=== PATIENT | male | born 1940 | race African-American/Black ===

== ENCOUNTER 2016-05-15 10:55 | Outpatient (CLI) | payer MEDICARE ==
[2016-05-15 11:29] LABS: Hemoglobin A1c 5.6 % (4.0-6.0)
[2016-05-15 11:41] LABS: INR-International Normal Ratio 2.2; Prothrombin Time 24.1 SEC (12.0-14.7)
[2016-05-15 11:48] LABS: Cardiac Risk 2.7 (Less than 4.5)
== END 2016-05-15 10:56 | disposition home or self-care (01) ==
LOC: MADLAB 10:55
DX: I48.91 Unspecified atrial fibrillation (principal); I50.9 Heart failure, unspecified; G40.119 Localization-related (focal) (partial) symptomatic epilepsy and epileptic syndromes with simple partial seizures, intractable, without status epilepticus
CPT/HCPCS: 36415; 80061; 80183; 82550; 83036; 85610; G0103

== ENCOUNTER 2016-06-19 09:52 | Outpatient (CLI) | payer MEDICARE ==
[2016-06-19 10:23] LABS: INR-International Normal Ratio 2.3; Prothrombin Time 25.6 SEC (12.0-14.7)
[2016-06-19 10:37] LABS: Hemoglobin A1c 5.6 % (4.0-6.0)
[2016-06-19 10:39] LABS: Cardiac Risk 2.5 (Less than 4.5)
== END 2016-06-19 09:53 | disposition home or self-care (01) ==
LOC: MADLAB 09:52
DX: I48.91 Unspecified atrial fibrillation (principal); I50.9 Heart failure, unspecified; G40.119 Localization-related (focal) (partial) symptomatic epilepsy and epileptic syndromes with simple partial seizures, intractable, without status epilepticus
CPT/HCPCS: 36415; 80061; 80183; 82550; 83036; 85610; G0103

== ENCOUNTER 2016-07-03 08:39 | Outpatient (CLI) | payer MEDICARE ==
[2016-07-03 09:14] LABS: INR-International Normal Ratio 2.2; Prothrombin Time 24.3 SEC (12.0-14.7)
[2016-07-03 09:24] LABS: Cardiac Risk 2.7 (Less than 4.5)
[2016-07-03 09:34] LABS: Hemoglobin A1c 5.7 % (4.0-6.0)
== END 2016-07-03 08:40 | disposition home or self-care (01) ==
LOC: MADLAB 08:39
DX: I50.9 Heart failure, unspecified (principal); G40.119 Localization-related (focal) (partial) symptomatic epilepsy and epileptic syndromes with simple partial seizures, intractable, without status epilepticus
CPT/HCPCS: 36415; 80061; 80183; 82550; 83036; 85610; G0103

== ENCOUNTER 2016-07-17 08:40 | Outpatient (CLI) | payer MEDICARE ==
[2016-07-17 09:17] LABS: Hemoglobin A1c 5.7 % (4.0-6.0)
[2016-07-17 09:19] LABS: INR-International Normal Ratio 2.4; Prothrombin Time 26.4 SEC (12.0-14.7)
[2016-07-17 09:27] LABS: Cardiac Risk 2.8 (Less than 4.5)
== END 2016-07-17 08:41 | disposition home or self-care (01) ==
LOC: MADLAB 08:40
DX: I48.91 Unspecified atrial fibrillation (principal); G40.119 Localization-related (focal) (partial) symptomatic epilepsy and epileptic syndromes with simple partial seizures, intractable, without status epilepticus
CPT/HCPCS: 36415; 80061; 80183; 82550; 83036; 85610; G0103

== ENCOUNTER 2016-07-31 08:57 | Outpatient (CLI) | payer MEDICARE ==
[2016-07-31 09:28] LABS: INR-International Normal Ratio 2.3; Prothrombin Time 25.4 SEC (12.0-14.7)
[2016-07-31 09:32] LABS: Hemoglobin A1c 5.7 % (4.0-6.0)
[2016-07-31 09:35] LABS: Cardiac Risk 3.2 (Less than 4.5)
== END 2016-07-31 08:58 | disposition home or self-care (01) ==
LOC: MADLAB 08:57
DX: I48.91 Unspecified atrial fibrillation (principal); I50.9 Heart failure, unspecified; G40.119 Localization-related (focal) (partial) symptomatic epilepsy and epileptic syndromes with simple partial seizures, intractable, without status epilepticus
CPT/HCPCS: 36415; 80061; 80183; 82550; 83036; 85610; G0103

== ENCOUNTER 2016-10-30 10:28 | Outpatient (CLI) | payer MEDICARE ==
[2016-10-30 11:14] LABS: INR-International Normal Ratio 2.4; Prothrombin Time 25.7 SEC (12.0-14.7)
[2016-10-30 11:18] LABS: Hemoglobin A1c 5.7 % (4.0-6.0)
[2016-10-30 11:22] LABS: Cardiac Risk 2.7 (Less than 4.5)
== END 2016-10-30 10:29 | disposition home or self-care (01) ==
LOC: MADLAB 10:28
DX: I48.91 Unspecified atrial fibrillation (principal); I50.9 Heart failure, unspecified
CPT/HCPCS: 36415; 80061; 80183; 82550; 83036; 85610; G0103

== ENCOUNTER 2016-12-18 07:50 | Outpatient (CLI) | payer MEDICARE ==
[2016-12-18 08:33] LABS: INR-International Normal Ratio 2.3; Prothrombin Time 26.2 SEC (12.0-14.7)
[2016-12-18 08:45] LABS: Hemoglobin A1c 5.6 % (4.0-6.0)
[2016-12-18 08:47] LABS: Cardiac Risk 2.8 (Less than 4.5)
== END 2016-12-18 07:51 | disposition home or self-care (01) ==
LOC: MADLAB 07:50
DX: I48.91 Unspecified atrial fibrillation (principal); I50.9 Heart failure, unspecified; G40.119 Localization-related (focal) (partial) symptomatic epilepsy and epileptic syndromes with simple partial seizures, intractable, without status epilepticus
CPT/HCPCS: 36415; 80061; 80183; 82550; 83036; 85610; G0103

== ENCOUNTER 2016-12-25 08:30 | Outpatient (CLI) | payer MEDICARE ==
[2016-12-25 09:18] LABS: Hemoglobin A1c 5.5 % (4.0-6.0)
[2016-12-25 09:28] LABS: INR-International Normal Ratio 1.8; Prothrombin Time 21.8 SEC (12.0-14.7)
[2016-12-25 09:40] LABS: Cardiac Risk 2.8 (Less than 4.5)
== END 2016-12-25 08:31 | disposition home or self-care (01) ==
LOC: MADLAB 08:30
DX: I48.91 Unspecified atrial fibrillation (principal); G40.119 Localization-related (focal) (partial) symptomatic epilepsy and epileptic syndromes with simple partial seizures, intractable, without status epilepticus; I50.9 Heart failure, unspecified
CPT/HCPCS: 36415; 80061; 80183; 82550; 83036; 85610; G0103

== ENCOUNTER 2017-02-05 10:03 | Outpatient (CLI) | payer MEDICARE ==
[2017-02-05 10:42] LABS: Hemoglobin A1c 5.6 % (4.0-6.0)
[2017-02-05 10:52] LABS: INR-International Normal Ratio 2.2; Prothrombin Time 24.8 SEC (12.0-14.7)
[2017-02-05 10:59] LABS: Cardiac Risk 2.8 (Less than 4.5)
== END 2017-02-05 10:04 | disposition home or self-care (01) ==
LOC: MADLAB 10:03
DX: G40.109 Localization-related (focal) (partial) symptomatic epilepsy and epileptic syndromes with simple partial seizures, not intractable, without status epilepticus (principal)
CPT/HCPCS: 36415; 80061; 80177; 80183; 82550; 83036; 85610; G0103

== ENCOUNTER 2017-06-25 08:54 | Outpatient (CLI) | payer MEDICARE ==
[2017-06-25 09:36] LABS: INR-International Normal Ratio 2.4; Prothrombin Time 27.4 SEC (12.0-14.7)
[2017-06-25 09:48] LABS: Cardiac Risk 2.9 (Less than 4.5)
[2017-06-25 17:03] LABS: Hemoglobin A1c 5.7 % (4.0-6.0)
== END 2017-06-25 08:55 | disposition home or self-care (01) ==
LOC: MADLAB 08:54
PROVIDERS: ATTEND Psychiatry & Neurology Neurology
DX: I48.91 Unspecified atrial fibrillation (principal); I50.9 Heart failure, unspecified; G40.109 Localization-related (focal) (partial) symptomatic epilepsy and epileptic syndromes with simple partial seizures, not intractable, without status epilepticus
CPT/HCPCS: 36415; 80061; 80177; 80183; 82550; 83036; 85610; G0103

== ENCOUNTER 2017-09-26 09:52 | Outpatient (CLI) | payer MEDICARE ==
[2017-09-26 10:28] LABS: INR-International Normal Ratio 2.1; Prothrombin Time 24.1 SEC (12.0-14.7)
[2017-09-26 10:39] LABS: Acanthocytes SLIGHT = 1-5 cells (100X) (None Seen); Anisocytosis SLIGHT = 6-15 cells (100X) (0-5/hpf); Band 3 % (5-11); Elliptocytes SLIGHT = 2-5 cells (100X) (0-1/hpf); Hemoglobin 12.4 g/dL (14.0-18.0); Lymphocytes 36 % (21-51); MDiff Complete? YES; Mean Corpuscular HGB CONC 31.1 g/dL (32.0-36.0); Mean Corpuscular Hemoglobin 23.8 pg (27.0-31.0); Mean Corpuscular Volume 76.8 fl (80.0-94.0); Mean Platelet Volume 8.6 fL (7.4-10.4); Metamyelocyte 3 % (0-0); Microcytosis SLIGHT = 6-15 cells (100X) (0-5/hpf); Monocytes 2 % (0-10); Neutrophil 56 % (42-75); PLT Morphology Comment PLTS SLIGHTLY DECREASED ON SLIDE; Platelet Count 103 thou/uL (130-400); Poikilocytosis SLIGHT = 6-15 cells (100X) (0-5/hpf); RBC Distribution Width 14.2 % (11.5-14.5); Red Blood Cell (RBC) Count 5.21 mill/uL (4.70-6.10); Schistocytes SLIGHT = 2-5 cells (100X) (0-1/hpf); Target Cells SLIGHT = 2-5 cells (100X) (0-1/hpf)
[2017-09-26 10:43] LABS: White Blood Cell (WBC) Count 2.6 thou/uL (4.8-10.8)
[2017-09-26 10:49] LABS: ALT (SGPT) 10 U/L (8-55); AST (SGOT) 17 U/L (5-34); Albumin 3.7 g/dL (3.4-4.8); Alkaline Phosphatase 77 U/L (40-150); Anion Gap 14 mmol/L (10-20); BUN (Urea Nitrogen) 16 mg/dL (8.4-25.7); Bilirubin, Direct 0.5 mg/dL (0.1-0.3); CK (CPK) 147 U/L (30-200); Calc. Creatinine Clearance 0 mL/min (70-130); Calcium 8.9 mg/dL (7.8-10.44); Carbon Dioxide 24 mmol/L (23-31); Cardiac Risk 2.8 (Less than 4.5); Chloride 106 mmol/L (98-107); Cholesterol 140 mg/dl (< 200 Desired); Estimated GFR-MDRD 70; Globulin 3.1 g/dL (2.4-3.5); Glucose 78 mg/dL (83-110); HDL Cholesterol 50 mg/dL (>60 Neg Risk); LDL Cholesterol, Calculated 81 mg/dL; Potassium 3.7 mmol/L (3.5-5.1); Protein, Total 6.8 g/dL (5.8-8.1); Sodium 140 mmol/L (136-145); Triglycerides 47 mg/dL (Less than 150)
[2017-09-26 17:34] LABS: Hemoglobin A1c 5.7 % (4.0-6.0)
[2017-09-26 17:46] LABS: Gamma GT (GGT) 91 U/L (12-64)
== END 2017-09-26 09:53 | disposition home or self-care (01) ==
LOC: MADLAB 09:52
PROVIDERS: ATTEND Psychiatry & Neurology Neurology
DX: Z00.00 Encounter for general adult medical examination without abnormal findings (principal); N40.0 Benign prostatic hyperplasia without lower urinary tract symptoms; I50.9 Heart failure, unspecified; E78.5 Hyperlipidemia, unspecified; I05.9 Rheumatic mitral valve disease, unspecified; G40.109 Localization-related (focal) (partial) symptomatic epilepsy and epileptic syndromes with simple partial seizures, not intractable, without status epilepticus; I48.91 Unspecified atrial fibrillation; Z95.810 Presence of automatic (implantable) cardiac defibrillator
CPT/HCPCS: 36415; 80053; 80061; 80177; 80183; 82248; 82550; 82977; 83036; 84100; 84443; 84550; 85025; 85610; G0103

== ENCOUNTER 2017-12-17 11:01 | Outpatient (CLI) | payer MEDICARE ==
[2017-12-17 11:47] LABS: INR-International Normal Ratio 1.8; Prothrombin Time 20.5 SEC (12.0-14.7)
== END 2017-12-17 11:02 | disposition home or self-care (01) ==
LOC: MADLAB 11:01
PROVIDERS: ATTEND Psychiatry & Neurology Neurology
DX: I48.91 Unspecified atrial fibrillation (principal); G40.109 Localization-related (focal) (partial) symptomatic epilepsy and epileptic syndromes with simple partial seizures, not intractable, without status epilepticus
CPT/HCPCS: 36415; 80177; 80183; 85610

== ENCOUNTER 2017-12-17 11:20 | Emergency (ER) | payer MEDICARE ==
--- NOTE | 2017-12-17 13:00 | RAD ---
LUMBAR SPINE RADIOGRAPHIC SERIES: Clinical indication: Fall with pain. FINDINGS: A chronic mild to moderate L1 compression fracture is present as was depicted on a prior CT 04-09-12. There is mild height loss of L4 and mild to moderate height loss at L5, age indeterminate. No signif icant subluxation. Scattered atherosclerotic vascular calcification is seen. IMPRESSION: Age indeterminate L4 and L5 level compression fractures. Recommend CT of lumbar spine, noncontrast, f or further evaluation, in light of the patient's recent injury with pain. POS: AMY
--- NOTE | 2017-12-17 13:16 | CT ---
CT LUMBAR SPINE WITH CORONAL AND SAGITTAL REFORMATIONS: Date: 12/17/17 HISTORY: Fall, injury, low back pain. FINDINGS/IMPRESSION: There is acute compression of L4 vertebral body with a chip fracture involving the superior anterior aspect of the L4 vertebral body. There is minimal retropulsion of the superior aspect of the L4 verte bral body. Compression of L5, L1, and T1 vertebral bodies is seen and appears age-indeterminate. There is a small amount of free fluid in the pelvis. Vascular calcifications are present. POS: AMY
== END 2017-12-17 13:50 | disposition home or self-care (01) ==
LOC: MADERS 11:20
DX: S32.059A Unspecified fracture of fifth lumbar vertebra, initial encounter for closed fracture (principal); S32.049A Unspecified fracture of fourth lumbar vertebra, initial encounter for closed fracture; I10 Essential (primary) hypertension; E78.5 Hyperlipidemia, unspecified; F17.210 Nicotine dependence, cigarettes, uncomplicated; W19.XXXA Unspecified fall, initial encounter
CPT/HCPCS: 36415; 72100; 72131; 80177; 80183; 85610

== ENCOUNTER 2017-12-27 08:55 | Outpatient (CLI) | payer MEDICARE ==
[2017-12-27 10:01] LABS: INR-International Normal Ratio 2.3; Prothrombin Time 25.5 SEC (12.0-14.7)
== END 2017-12-27 08:56 | disposition home or self-care (01) ==
LOC: MADLAB 08:55
PROVIDERS: ATTEND Hospitalist
DX: I48.91 Unspecified atrial fibrillation (principal)
CPT/HCPCS: 36415; 85610

== ENCOUNTER 2018-01-21 09:30 | Outpatient (CLI) | payer MEDICARE ==
[2018-01-22 08:51] LABS: INR-International Normal Ratio 1.9; Prothrombin Time 21.7 SEC (12.0-14.7)
== END 2018-01-21 09:31 | disposition home or self-care (01) ==
LOC: MADLAB 09:30
PROVIDERS: ATTEND Psychiatry & Neurology Neurology
DX: G40.109 Localization-related (focal) (partial) symptomatic epilepsy and epileptic syndromes with simple partial seizures, not intractable, without status epilepticus (principal); I48.91 Unspecified atrial fibrillation
CPT/HCPCS: 80177; 80183; 85610

== ENCOUNTER 2018-04-23 10:12 | Outpatient (CLI) | payer MEDICARE ==
[2018-04-23 10:39] LABS: INR-International Normal Ratio 2.5; Prothrombin Time 26.6 SEC (12.0-14.7)
== END 2018-04-23 10:13 | disposition home or self-care (01) ==
LOC: MADLAB 10:12
PROVIDERS: ATTEND Psychiatry & Neurology Neurology
DX: Z51.81 Encounter for therapeutic drug level monitoring (principal); I48.91 Unspecified atrial fibrillation; G40.109 Localization-related (focal) (partial) symptomatic epilepsy and epileptic syndromes with simple partial seizures, not intractable, without status epilepticus; Z79.01 Long term (current) use of anticoagulants
CPT/HCPCS: 36415; 80177; 85610

== ENCOUNTER 2018-06-25 09:10 | Outpatient (CLI) | payer MEDICARE ==
[2018-06-25 09:56] LABS: INR-International Normal Ratio 2.4
== END 2018-06-25 09:11 | disposition home or self-care (01) ==
LOC: MADLAB 09:10
PROVIDERS: ATTEND Psychiatry & Neurology Neurology
DX: Z51.81 Encounter for therapeutic drug level monitoring (principal); I48.91 Unspecified atrial fibrillation; Z79.899 Other long term (current) drug therapy
CPT/HCPCS: 36415; 80177; 80183; 85610

== ENCOUNTER 2018-12-25 13:25 | Outpatient (CLI) | payer MEDICARE ==
[2018-12-25 13:54] LABS: Hemoglobin 11.3 g/dL (14.0-18.0); Mean Corpuscular HGB CONC 29.9 g/dL (32.0-36.0); Mean Corpuscular Hemoglobin 22.9 pg (27.0-31.0); Mean Corpuscular Volume 76.5 fL (78.0-98.0); Mean Platelet Volume 9.2 fL (7.4-10.4); Platelet Count 101 thou/uL (130-400); RBC Distribution Width 14.9 % (11.5-14.5); Red Blood Cell (RBC) Count 4.92 mill/uL (4.70-6.10); White Blood Cell (WBC) Count 2.7 thou/uL (4.8-10.8)
[2018-12-25 14:01] LABS: INR-International Normal Ratio 1.9; Prothrombin Time 21.6 SEC (12.0-14.7)
[2018-12-25 14:12] LABS: ALT (SGPT) 18 U/L (8-55); AST (SGOT) 22 U/L (5-34); Albumin 3.9 g/dL (3.4-4.8); Alkaline Phosphatase 95 U/L (40-150); Anion Gap 11 mmol/L (10-20); BUN (Urea Nitrogen) 15 mg/dL (8.4-25.7); Bilirubin, Total 0.6 mg/dL (0.2-1.2); CK (CPK) 85 U/L (30-200); Calc. Creatinine Clearance 0 mL/min (70-130); Calcium 8.9 mg/dL (7.8-10.44); Carbon Dioxide 26 mmol/L (23-31); Cardiac Risk 2.8 (Less than 4.5); Chloride 108 mmol/L (98-107); Cholesterol 145 mg/dl (< 200 Desired); Estimated GFR-MDRD 60; Globulin 3.4 g/dL (2.4-3.5); Glucose 84 mg/dL (83-110); HDL Cholesterol 52 mg/dL (>60 Neg Risk); LDL Cholesterol, Calculated 83 mg/dL; Potassium 4.1 mmol/L (3.5-5.1); Protein, Total 7.3 g/dL (5.8-8.1); Sodium 141 mmol/L (136-145); Triglycerides 52 mg/dL (Less than 150)
== END 2018-12-25 13:26 | disposition home or self-care (01) ==
LOC: MADLAB 13:25
PROVIDERS: ATTEND Psychiatry & Neurology Neurology
DX: I48.91 Unspecified atrial fibrillation (principal); I05.9 Rheumatic mitral valve disease, unspecified; I50.9 Heart failure, unspecified; Z95.810 Presence of automatic (implantable) cardiac defibrillator
CPT/HCPCS: 36415; 80053; 80061; 80177; 80183; 82550; 85027; 85610; G0103

== ENCOUNTER 2019-03-02 10:41 | Outpatient (CLI) | payer MEDICARE ==
[2019-03-02 11:26] LABS: Anion Gap 10 mmol/L (10-20); BUN (Urea Nitrogen) 15 mg/dL (8.4-25.7); Calc. Creatinine Clearance 0 mL/min (70-130); Carbon Dioxide 26 mmol/L (23-31); Chloride 107 mmol/L (98-107); Estimated GFR-MDRD 70; Glucose 92 mg/dL (83-110); Potassium 4.3 mmol/L (3.5-5.1); Sodium 139 mmol/L (136-145)
[2019-03-02 18:46] LABS: INR-International Normal Ratio 1.4; Prothrombin Time 16.8 SEC (12.0-14.7)
== END 2019-03-02 10:42 | disposition home or self-care (01) ==
LOC: MADLAB 10:41
PROVIDERS: ATTEND Hospitalist
DX: I50.9 Heart failure, unspecified (principal); I48.91 Unspecified atrial fibrillation; I05.9 Rheumatic mitral valve disease, unspecified; Z95.810 Presence of automatic (implantable) cardiac defibrillator
CPT/HCPCS: 36415; 80048; 85610

== ENCOUNTER 2019-03-04 12:01 | Outpatient (CLI) | payer MEDICARE ==
[2019-03-04 12:44] LABS: INR-International Normal Ratio 1.4
[2019-03-04 12:49] LABS: Anion Gap 12 mmol/L (10-20); BUN (Urea Nitrogen) 15 mg/dL (8.4-25.7); Calc. Creatinine Clearance 0 mL/min (70-130); Calcium 8.8 mg/dL (7.8-10.44); Carbon Dioxide 27 mmol/L (23-31); Chloride 105 mmol/L (98-107); Estimated GFR-MDRD 60; Glucose 86 mg/dL (83-110); Potassium 4.5 mmol/L (3.5-5.1); Sodium 139 mmol/L (136-145)
== END 2019-03-04 12:02 | disposition home or self-care (01) ==
LOC: MADLAB 12:01
PROVIDERS: ATTEND Hospitalist
DX: I50.9 Heart failure, unspecified (principal); I05.9 Rheumatic mitral valve disease, unspecified; I48.91 Unspecified atrial fibrillation; Z95.810 Presence of automatic (implantable) cardiac defibrillator
CPT/HCPCS: 80048; 85610

== ENCOUNTER 2019-03-06 08:49 | Outpatient (CLI) | payer MEDICARE ==
[2019-03-06 09:27] LABS: INR-International Normal Ratio 1.6; Prothrombin Time 19.3 SEC (12.0-14.7)
[2019-03-06 10:11] LABS: Anion Gap 12 mmol/L (10-20); BUN (Urea Nitrogen) 18 mg/dL (8.4-25.7); Calc. Creatinine Clearance 0 mL/min (70-130); Carbon Dioxide 25 mmol/L (23-31); Chloride 107 mmol/L (98-107); Estimated GFR-MDRD 67; Glucose 143 mg/dL (83-110); Potassium 4.2 mmol/L (3.5-5.1); Sodium 140 mmol/L (136-145)
== END 2019-03-06 08:50 | disposition home or self-care (01) ==
LOC: MADLAB 08:49
PROVIDERS: ATTEND Hospitalist
DX: I50.9 Heart failure, unspecified (principal); I48.91 Unspecified atrial fibrillation; Z95.810 Presence of automatic (implantable) cardiac defibrillator
CPT/HCPCS: 36415; 80048; 85610

== ENCOUNTER 2019-03-09 08:35 | Outpatient (CLI) | payer MEDICARE ==
[2019-03-09 08:55] LABS: INR-International Normal Ratio 1.7; Prothrombin Time 20.2 SEC (12.0-14.7)
[2019-03-09 09:02] LABS: Anion Gap 13 mmol/L (10-20); BUN (Urea Nitrogen) 17 mg/dL (8.4-25.7); Calc. Creatinine Clearance 0 mL/min (70-130); Calcium 9.3 mg/dL (7.8-10.44); Carbon Dioxide 26 mmol/L (23-31); Chloride 105 mmol/L (98-107); Estimated GFR-MDRD 63; Glucose 97 mg/dL (83-110); Potassium 4.8 mmol/L (3.5-5.1); Sodium 139 mmol/L (136-145)
== END 2019-03-09 08:36 | disposition home or self-care (01) ==
LOC: MADLAB 08:35
PROVIDERS: ATTEND Hospitalist
DX: I05.9 Rheumatic mitral valve disease, unspecified (principal); I50.9 Heart failure, unspecified; I48.91 Unspecified atrial fibrillation; Z95.810 Presence of automatic (implantable) cardiac defibrillator
CPT/HCPCS: 36415; 80048; 85610

== ENCOUNTER 2019-06-26 14:07 | Outpatient (CLI) | payer MEDICARE ==
[2019-06-26 14:33] LABS: INR-International Normal Ratio 2.9
[2019-06-26 14:44] LABS: ALT (SGPT) 18 U/L (8-55); AST (SGOT) 21 U/L (5-34); Albumin 3.9 g/dL (3.4-4.8); Alkaline Phosphatase 101 U/L (40-110); Anion Gap 13 mmol/L (10-20); BUN (Urea Nitrogen) 12 mg/dL (8.4-25.7); Bilirubin, Total 0.5 mg/dL (0.2-1.2); CK (CPK) 58 U/L (30-200); Calc. Creatinine Clearance 0 mL/min (70-130); Calcium 8.8 mg/dL (7.8-10.44); Carbon Dioxide 26 mmol/L (23-31); Chloride 108 mmol/L (98-107); Estimated GFR-MDRD 66; Globulin 3.7 g/dL (2.4-3.5); Glucose 91 mg/dL (83-110); Potassium 4.8 mmol/L (3.5-5.1); Protein, Total 7.6 g/dL (5.8-8.1); Sodium 142 mmol/L (136-145)
[2019-06-26 15:31] LABS: #Basophils 0.1 thou/uL (0.0-0.2); #Eosinphils 0.1 thou/uL (0.0-0.7); #Lymphocytes 1.1 thou/uL (1.20-3.40); #Monocytes 0.3 thou/uL (0.11-0.59); #Neutrophils 1.7 thou/uL (1.40-6.50); %Basophils 2.1 % (0.0-1.0); %Eosinophils 3.6 % (0.0-10.0); %Lymphocytes 32.7 % (21.0-51.0); %Neutrophils 52.7 % (42.0-75.0); Hemoglobin 11.6 g/dL (14.0-18.0); Hypochromia SLIGHT = 6-15 cells (100X) (0-5/hpf); MDiff Complete? YES; Mean Corpuscular HGB CONC 28.8 g/dL (32.0-36.0); Mean Corpuscular Hemoglobin 23.3 pg (27.0-31.0); Mean Corpuscular Volume 80.7 fL (78.0-98.0); Mean Platelet Volume 10.1 fL (7.4-10.4); Nucleated RBC 0 % (0); Platelet Count 143 thou/uL (130-400); RBC Distribution Width 15.8 % (11.5-14.5); Red Blood Cell (RBC) Count 4.99 mill/uL (4.70-6.10); White Blood Cell (WBC) Count 3.3 thou/uL (4.8-10.8)
== END 2019-06-26 14:08 | disposition home or self-care (01) ==
LOC: MADLAB 14:07
PROVIDERS: ATTEND Psychiatry & Neurology Neurology
DX: I50.9 Heart failure, unspecified (principal); Z95.810 Presence of automatic (implantable) cardiac defibrillator
CPT/HCPCS: 36415; 80053; 82550; 85025; 85610

== ENCOUNTER 2020-03-03 14:33 | Outpatient (CLI) | payer MEDICARE ==
[2020-03-03 15:10] LABS: Prothrombin Time 22.8 sec (12.0-14.7)
[2020-03-03 15:20] LABS: ALT (SGPT) 12 U/L (8-55); AST (SGOT) 16 U/L (5-34); Albumin 3.9 g/dL (3.4-4.8); Alkaline Phosphatase 111 U/L (40-110); Anion Gap 15 mmol/L (10-20); BUN (Urea Nitrogen) 6 mg/dL (8.4-25.7); Bilirubin, Total 0.7 mg/dL (0.2-1.2); CK (CPK) 75 U/L (30-200); Calc. Creatinine Clearance 0 mL/min (70-130); Calcium 8.7 mg/dL (7.8-10.44); Carbon Dioxide 27 mmol/L (23-31); Chloride 93 mmol/L (98-107); Estimated GFR-MDRD 81; Globulin 3.3 g/dL (2.4-3.5); Glucose 99 mg/dL (83-110); Potassium 3.7 mmol/L (3.5-5.1); Protein, Total 7.2 g/dL (5.8-8.1); Sodium 131 mmol/L (136-145)
[2020-03-03 17:24] LABS: Hemoglobin 12.1 g/dL (14.0-18.0); Mean Corpuscular Hemoglobin 23.7 pg (27.0-31.0); Mean Corpuscular Volume 79.2 fL (78.0-98.0); Mean Platelet Volume 8.3 fL (7.4-10.4); Platelet Count 161 thou/uL (130-400); RBC Distribution Width 14.4 % (11.5-14.5); Red Blood Cell (RBC) Count 5.11 mill/uL (4.70-6.10)
[2020-03-03 17:25] LABS: White Blood Cell (WBC) Count 2.9 thou/uL (4.8-10.8)
== END 2020-03-03 14:34 | disposition home or self-care (01) ==
LOC: MADLAB 14:33
PROVIDERS: ATTEND Hospitalist
DX: I50.9 Heart failure, unspecified (principal); Z95.810 Presence of automatic (implantable) cardiac defibrillator
CPT/HCPCS: 36415; 80053; 82550; 85027; 85610

== ENCOUNTER 2020-06-09 14:09 | Outpatient (CLI) | payer MEDICARE ==
[2020-06-09 14:37] LABS: INR-International Normal Ratio 3.1; Prothrombin Time 32.6 sec (12.0-14.7)
[2020-06-09 14:48] LABS: ALT (SGPT) 14 U/L (8-55); AST (SGOT) 15 U/L (5-34); Albumin 3.6 g/dL (3.4-4.8); Alkaline Phosphatase 107 U/L (40-110); Anion Gap 13 mmol/L (10-20); BUN (Urea Nitrogen) 13 mg/dL (8.4-25.7); Bilirubin, Total 0.6 mg/dL (0.2-1.2); CK (CPK) 58 U/L (30-200); Calc. Creatinine Clearance 0 mL/min (70-130); Calcium 8.5 mg/dL (7.8-10.44); Carbon Dioxide 27 mmol/L (23-31); Chloride 104 mmol/L (98-107); Globulin 3.5 g/dL (2.4-3.5); Glucose 89 mg/dL (83-110); Potassium 4.1 mmol/L (3.5-5.1); Protein, Total 7.1 g/dL (5.8-8.1); Sodium 140 mmol/L (136-145)
[2020-06-09 14:53] LABS: Hemoglobin 11.9 g/dL (14.0-18.0); Mean Corpuscular HGB CONC 31.1 g/dL (32.0-36.0); Mean Corpuscular Hemoglobin 24.5 pg (27.0-31.0); Mean Corpuscular Volume 78.6 fL (78.0-98.0); Mean Platelet Volume 8.5 fL (7.4-10.4); Platelet Count 146 thou/uL (130-400); RBC Distribution Width 14.7 % (11.5-14.5); Red Blood Cell (RBC) Count 4.86 mill/uL (4.70-6.10); White Blood Cell (WBC) Count 4.2 thou/uL (4.8-10.8)
== END 2020-06-09 14:10 | disposition home or self-care (01) ==
LOC: MADLAB 14:09
PROVIDERS: ATTEND Hospitalist
DX: I50.9 Heart failure, unspecified (principal); Z95.810 Presence of automatic (implantable) cardiac defibrillator
CPT/HCPCS: 36415; 80053; 82550; 85027; 85610

== ENCOUNTER 2020-10-13 10:48 | Outpatient (CLI) | payer MEDICARE ==
[2020-10-13 11:13] LABS: Hemoglobin 11.8 g/dL (14.0-18.0); Mean Corpuscular HGB CONC 29.8 g/dL (32.0-36.0); Mean Corpuscular Hemoglobin 24.7 pg (27.0-31.0); Mean Corpuscular Volume 82.6 fL (78.0-98.0); Mean Platelet Volume 9.6 fL (7.4-10.4); Platelet Count 161 thou/uL (130-400); RBC Distribution Width 15.2 % (11.5-14.5); Red Blood Cell (RBC) Count 4.79 mill/uL (4.70-6.10); White Blood Cell (WBC) Count 3.7 thou/uL (4.8-10.8)
[2020-10-13 11:17] LABS: Prothrombin Time 44.8 sec (12.0-14.7)
[2020-10-13 11:24] LABS: ALT (SGPT) 18 U/L (8-55); AST (SGOT) 19 U/L (5-34); Albumin 3.8 g/dL (3.4-4.8); Alkaline Phosphatase 104 U/L (40-110); Anion Gap 13 mmol/L (10-20); BUN (Urea Nitrogen) 12 mg/dL (8.4-25.7); Bilirubin, Total 0.7 mg/dL (0.2-1.2); CK (CPK) 123 U/L (30-200); Calc. Creatinine Clearance 0 mL/min (70-130); Calcium 8.4 mg/dL (7.8-10.44); Carbon Dioxide 25 mmol/L (23-31); Chloride 99 mmol/L (98-107); Globulin 3.3 g/dL (2.4-3.5); Glucose 103 mg/dL (83-110); Potassium 3.9 mmol/L (3.5-5.1); Protein, Total 7.1 g/dL (5.8-8.1); Sodium 133 mmol/L (136-145)
[2020-10-13 11:56] LABS: INR-International Normal Ratio 4.6
== END 2020-10-13 10:49 | disposition home or self-care (01) ==
LOC: MADLAB 10:48
PROVIDERS: ATTEND Hospitalist
DX: I50.9 Heart failure, unspecified (principal); Z95.810 Presence of automatic (implantable) cardiac defibrillator
CPT/HCPCS: 36415; 80053; 82550; 85027; 85610

== ENCOUNTER 2020-11-17 09:59 | Outpatient (CLI) | payer MEDICARE ==
[2020-11-17 10:26] LABS: Mean Corpuscular Hemoglobin 24.8 pg (27.0-31.0); Mean Corpuscular Volume 82.7 fL (78.0-98.0); Mean Platelet Volume 9.3 fL (7.4-10.4); Platelet Count 168 thou/uL (130-400); RBC Distribution Width 15.5 % (11.5-14.5); Red Blood Cell (RBC) Count 4.83 mill/uL (4.70-6.10); White Blood Cell (WBC) Count 3.4 thou/uL (4.8-10.8)
[2020-11-17 10:34] LABS: ALT (SGPT) 17 U/L (8-55); AST (SGOT) 18 U/L (5-34); Albumin 3.9 g/dL (3.4-4.8); Alkaline Phosphatase 105 U/L (40-110); Anion Gap 9 mmol/L (10-20); BUN (Urea Nitrogen) 12 mg/dL (8.4-25.7); Bilirubin, Total 0.8 mg/dL (0.2-1.2); CK (CPK) 63 U/L (30-200); Calc. Creatinine Clearance 0 mL/min (70-130); Calcium 8.6 mg/dL (7.8-10.44); Carbon Dioxide 26 mmol/L (23-31); Chloride 95 mmol/L (98-107); Globulin 3.2 g/dL (2.4-3.5); Glucose 92 mg/dL (83-110); Potassium 4.4 mmol/L (3.5-5.1); Protein, Total 7.1 g/dL (5.8-8.1); Sodium 126 mmol/L (136-145)
[2020-11-17 10:56] LABS: INR-International Normal Ratio 1.1; Prothrombin Time 14.5 sec (12.0-14.7)
== END 2020-11-17 10:00 | disposition home or self-care (01) ==
LOC: MADLAB 09:59
PROVIDERS: ATTEND Hospitalist
DX: I50.9 Heart failure, unspecified (principal); Z95.810 Presence of automatic (implantable) cardiac defibrillator
CPT/HCPCS: 36415; 80053; 82550; 85027; 85610

== ENCOUNTER 2020-12-01 12:53 | Outpatient (CLI) | payer MEDICARE ==
[2020-12-01 13:16] LABS: Hemoglobin 11.6 g/dL (14.0-18.0); Mean Corpuscular HGB CONC 30.1 g/dL (32.0-36.0); Mean Corpuscular Hemoglobin 24.9 pg (27.0-31.0); Mean Corpuscular Volume 82.5 fL (78.0-98.0); Platelet Count 150 thou/uL (130-400); RBC Distribution Width 14.9 % (11.5-14.5); Red Blood Cell (RBC) Count 4.66 mill/uL (4.70-6.10)
[2020-12-01 13:28] LABS: INR-International Normal Ratio 1.6; Prothrombin Time 19.7 sec (12.0-14.7)
[2020-12-01 13:36] LABS: ALT (SGPT) 13 U/L (8-55); AST (SGOT) 15 U/L (5-34); Albumin 3.7 g/dL (3.4-4.8); Alkaline Phosphatase 92 U/L (40-110); Anion Gap 11 mmol/L (10-20); BUN (Urea Nitrogen) 10 mg/dL (8.4-25.7); Bilirubin, Total 1.2 mg/dL (0.2-1.2); CK (CPK) 68 U/L (30-200); Calc. Creatinine Clearance 0 mL/min (70-130); Calcium 8.5 mg/dL (7.8-10.44); Carbon Dioxide 25 mmol/L (23-31); Chloride 95 mmol/L (98-107); Globulin 3.1 g/dL (2.4-3.5); Glucose 109 mg/dL (83-110); Potassium 3.9 mmol/L (3.5-5.1); Protein, Total 6.8 g/dL (5.8-8.1); Sodium 127 mmol/L (136-145)
== END 2020-12-01 12:54 | disposition home or self-care (01) ==
LOC: MADLAB 12:53
PROVIDERS: ATTEND Hospitalist
DX: I50.9 Heart failure, unspecified (principal); Z95.810 Presence of automatic (implantable) cardiac defibrillator
CPT/HCPCS: 36415; 80053; 82550; 85027; 85610

== ENCOUNTER 2020-12-21 11:25 | Outpatient (CLI) | payer MEDICARE ==
[2020-12-21 12:07] LABS: INR-International Normal Ratio 2.5
[2020-12-21 12:15] LABS: ALT (SGPT) 18 U/L (8-55); AST (SGOT) 16 U/L (5-34); Albumin 3.6 g/dL (3.4-4.8); Alkaline Phosphatase 114 U/L (40-110); Anion Gap 14 mmol/L (10-20); BUN (Urea Nitrogen) 9 mg/dL (8.4-25.7); Bilirubin, Total 1.3 mg/dL (0.2-1.2); CK (CPK) 44 U/L (30-200); Calc. Creatinine Clearance 0 mL/min (70-130); Calcium 9.3 mg/dL (7.8-10.44); Carbon Dioxide 25 mmol/L (23-31); Chloride 97 mmol/L (98-107); Globulin 3.9 g/dL (2.4-3.5); Glucose 102 mg/dL (83-110); Potassium 4.8 mmol/L (3.5-5.1); Protein, Total 7.5 g/dL (5.8-8.1); Sodium 131 mmol/L (136-145)
[2020-12-21 12:21] LABS: Hemoglobin 12.2 g/dL (14.0-18.0); Mean Corpuscular HGB CONC 30.1 g/dL (32.0-36.0); Mean Corpuscular Hemoglobin 24.5 pg (27.0-31.0); Mean Corpuscular Volume 81.3 fL (78.0-98.0); Platelet Count 282 thou/uL (130-400); RBC Distribution Width 14.4 % (11.5-14.5); Red Blood Cell (RBC) Count 4.96 mill/uL (4.70-6.10); White Blood Cell (WBC) Count 10.7 thou/uL (4.8-10.8)
== END 2020-12-21 11:26 | disposition home or self-care (01) ==
LOC: MADLAB 11:25
PROVIDERS: ATTEND Hospitalist
DX: I50.9 Heart failure, unspecified (principal); Z95.810 Presence of automatic (implantable) cardiac defibrillator
CPT/HCPCS: 36415; 80053; 82550; 85027; 85610

== ENCOUNTER 2021-02-15 12:33 | Outpatient (CLI) | payer MEDICARE ==
[2021-02-15 13:12] LABS: INR-International Normal Ratio 1.2; Prothrombin Time 15.5 sec (12.0-14.7)
[2021-02-15 13:14] LABS: Mean Corpuscular HGB CONC 29.7 g/dL (32.0-36.0); Mean Corpuscular Hemoglobin 24.2 pg (27.0-31.0); Mean Corpuscular Volume 81.3 fL (78.0-98.0); Platelet Count 166 thou/uL (130-400); RBC Distribution Width 15.4 % (11.5-14.5); Red Blood Cell (RBC) Count 4.99 mill/uL (4.70-6.10); White Blood Cell (WBC) Count 4.1 thou/uL (4.8-10.8)
[2021-02-15 13:23] LABS: ALT (SGPT) 16 U/L (8-55); AST (SGOT) 18 U/L (5-34); Albumin 3.5 g/dL (3.4-4.8); Alkaline Phosphatase 94 U/L (40-110); Anion Gap 12 mmol/L (10-20); BUN (Urea Nitrogen) 13 mg/dL (8.4-25.7); Bilirubin, Total 0.6 mg/dL (0.2-1.2); CK (CPK) 60 U/L (30-200); Calc. Creatinine Clearance 0 mL/min (70-130); Calcium 9.1 mg/dL (7.8-10.44); Carbon Dioxide 29 mmol/L (23-31); Chloride 105 mmol/L (98-107); Globulin 3.7 g/dL (2.4-3.5); Glucose 98 mg/dL (83-110); Potassium 3.7 mmol/L (3.5-5.1); Protein, Total 7.2 g/dL (5.8-8.1); Sodium 142 mmol/L (136-145)
== END 2021-02-15 12:34 | disposition home or self-care (01) ==
LOC: MADLAB 12:33
PROVIDERS: ATTEND Hospitalist
DX: I50.9 Heart failure, unspecified (principal); Z95.810 Presence of automatic (implantable) cardiac defibrillator
CPT/HCPCS: 36415; 80053; 82550; 85027; 85610

== ENCOUNTER 2021-03-22 11:12 | Outpatient (CLI) | payer MEDICARE ==
[2021-03-22 11:34] LABS: INR-International Normal Ratio 1.2; Prothrombin Time 15.4 sec (12.0-14.7)
== END 2021-03-22 11:13 | disposition home or self-care (01) ==
LOC: MADLAB 11:12
PROVIDERS: ATTEND Hospitalist
DX: N40.0 Benign prostatic hyperplasia without lower urinary tract symptoms (principal); E78.5 Hyperlipidemia, unspecified
CPT/HCPCS: 36415; 85610

== ENCOUNTER 2021-03-29 11:29 | Outpatient (CLI) | payer MEDICARE ==
[2021-03-29 11:41] LABS: Hemoglobin 11.5 g/dL (14.0-18.0); Mean Corpuscular HGB CONC 30.3 g/dL (32.0-36.0); Mean Corpuscular Hemoglobin 24.3 pg (27.0-31.0); Mean Corpuscular Volume 80.2 fL (78.0-98.0); Mean Platelet Volume 8.2 fL (7.4-10.4); Platelet Count 147 thou/uL (130-400); RBC Distribution Width 15.1 % (11.5-14.5); Red Blood Cell (RBC) Count 4.72 mill/uL (4.70-6.10); White Blood Cell (WBC) Count 3.4 thou/uL (4.8-10.8)
[2021-03-29 11:52] LABS: INR-International Normal Ratio 1.9; Prothrombin Time 22.4 sec (12.0-14.7)
[2021-03-29 11:59] LABS: ALT (SGPT) 16 U/L (8-55); AST (SGOT) 15 U/L (5-34); Albumin 3.8 g/dL (3.4-4.8); Alkaline Phosphatase 80 U/L (40-110); Anion Gap 10 mmol/L (10-20); BUN (Urea Nitrogen) 11 mg/dL (8.4-25.7); Bilirubin, Total 0.6 mg/dL (0.2-1.2); CK (CPK) 59 U/L (30-200); Calc. Creatinine Clearance 0 mL/min (70-130); Calcium 8.5 mg/dL (7.8-10.44); Carbon Dioxide 26 mmol/L (23-31); Chloride 105 mmol/L (98-107); Globulin 3.1 g/dL (2.4-3.5); Glucose 81 mg/dL (83-110); Potassium 3.8 mmol/L (3.5-5.1); Protein, Total 6.9 g/dL (5.8-8.1); Sodium 137 mmol/L (136-145)
== END 2021-03-29 11:30 | disposition home or self-care (01) ==
LOC: MADLAB 11:29
PROVIDERS: ATTEND Hospitalist
DX: I50.9 Heart failure, unspecified (principal); Z95.810 Presence of automatic (implantable) cardiac defibrillator
CPT/HCPCS: 36415; 80053; 82550; 85027; 85610

== ENCOUNTER 2021-05-09 12:42 | Outpatient (CLI) | payer MEDICARE ==
[2021-05-09 13:34] LABS: INR-International Normal Ratio 2.8; Prothrombin Time 29.9 sec (12.0-14.7)
== END 2021-05-09 12:43 | disposition home or self-care (01) ==
LOC: MADLAB 12:42
PROVIDERS: ATTEND Hospitalist
DX: E78.5 Hyperlipidemia, unspecified (principal); N40.0 Benign prostatic hyperplasia without lower urinary tract symptoms
CPT/HCPCS: 36415; 85610